=== PATIENT | female | born 1985 | race Caucasian/White ===

== ENCOUNTER 2025-04-07 11:05 | Day surgery (SDC) | payer BC, SELFPAY ==
[2025-04-07] VITALS (19 sets, daily range): BP systolic 117–152; BP diastolic 76–101; PULSE 75–96; RESP 16–20; TEMP 36.4–37.3; O2SAT 92–99; BMI 37.8
[2025-04-07] MEDS: LACTATED RINGERS 1000 ML 1,000 ML 100 ML IV ×2 (11:25→16:33)
[2025-04-07] MEDS: SODIUM CHLORIDE 0.9 % (FLUSH) 10 ML SYRINGE IVF (11:47)
[2025-04-07] MEDS: MIDAZOLAM HCL 1 MG/ML inj IVP (12:50)
--- NOTE | 2025-04-07 13:02 | W.PM.NB ---
Nerve Block Nerve Block Time Seen by Provider: 12:55 Date Seen: 04/07/25 Type of block requested by surgeon for post-operative analgesia: popliteal Side: right Time out performed: Yes Verification of patient name: Yes Verification of date of : Yes Site marking: site marked Name of person performing procedure: Maicol Continuous monitoring Was continuous monitoring of O2 sat, B/P, computer help desk representative, recorded every 15 minutes?: Yes Procedure Checklist: sterile prep, needles and gloves Ultrasound guided. Images saved: Yes Medications given in 5ml increments after negative aspiration: Marcaine %: 0.5 mL: 10 Needle gauge: 22 and Exparel mL: 10 Patient tolerated procedure well: Yes Additional comments: Needle noted adjacent to nerve Block Charges Block Charge (with Pro Fee): Sciatic Nerve Use of Ultrasound Machine for Block: Yes- US Guidance/pain block
--- NOTE | 2025-04-07 13:08 | SUR.PREOP ---
TIME?OUT:?1250 PT/fernando azul RN/jorge corey MDA?VERIFICATION?OF?SURGICAL?SITE,?PROCEDURE,?AND?CONSENT OBTAINED?PRIOR?TO?INVASIVE?PROCEDURE.
--- NOTE | 2025-04-07 13:48 | P.ANES_ITS ---
Anesthesia Charges Start Date/Time Anesthesia Start Date: 04/07/25 Anesthesia Start Time: 13:08 Stop Date/Time Anesthesia Stop Date: 04/07/25 Anesthesia Stop Time: 16:51 Coding CPT Codes CPT Codes: ANESTH LOWER LEG SURGERY - 31493 ([id number]) P3 - PATIENT W/SEVERE SYS DISEASE, QK - THREAD MACHINE OPERATOR 2-4 CNCRNT ANES PROC, QX - SPECIALTY DEVELOPMENT CONSULTANT SVC W/ MD MED DIRECTION
--- NOTE | 2025-04-07 13:48 | W.ANESCHARGE ---
Anesthesia Charges Start Date/Time Anesthesia Start Date: 04/07/25 Anesthesia Start Time: 13:08 Stop Date/Time Anesthesia Stop Date: 04/07/25 Anesthesia Stop Time: 16:51 Coding CPT Codes CPT Codes: ANESTH LOWER LEG SURGERY - 69770 ([id number]) P3 - PATIENT W/SEVERE SYS DISEASE, QK - SHOW JUMPING INSTRUCTOR 2-4 CNCRNT ANES PROC, QX - TRANSFORMER TESTER SVC W/ MD MED DIRECTION
--- NOTE | 2025-04-07 17:15 | P.ANES_ITS ---
Anesthesia Charges Start Date/Time Anesthesia Start Date: 04/07/25 Anesthesia Start Time: 13:08 Stop Date/Time Anesthesia Stop Date: 04/07/25 Anesthesia Stop Time: 16:51 Coding CPT Codes CPT Codes: ANESTH LOWER LEG BONE SURG - 02039 ([id number]) P3 - PATIENT W/SEVERE SYS DISEASE, QK - HARP MAKER 2-4 CNCRNT ANES PROC, QX - TREE TRIMMING LINE TECHNICIAN SVC W/ MD MED DIRECTION
--- NOTE | 2025-04-07 17:15 | W.ANESCHARGE ---
Anesthesia Charges Start Date/Time Anesthesia Start Date: 04/07/25 Anesthesia Start Time: 13:08 Stop Date/Time Anesthesia Stop Date: 04/07/25 Anesthesia Stop Time: 16:51 Coding CPT Codes CPT Codes: ANESTH LOWER LEG BONE SURG - 28499 ([id number]) P3 - PATIENT W/SEVERE SYS DISEASE, QK - ACTION INSTALLER 2-4 CNCRNT ANES PROC, QX - DRUG SAFETY SCIENTIST SVC W/ MD MED DIRECTION
--- NOTE | 2025-04-07 17:27 | W.PODPROC_ITS ---
Date of Procedure: 04/07/25 Surgeon: Urbano Main DPM Pre-op Diagnosis: 1. Hammertoe deformity 2nd digit right 2. Hammertoe deformity 3rd digit right 3. Hammertoe deformity 4th digit right 4. Hammertoe deformity 5th digit right 5. Gastroc equinus right 6. 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 Metatarsalgia right Post-op Diagnosis: 1. Hammertoe deformity 2nd digit right 2. Hammertoe deformity 3rd digit right 3. Hammertoe deformity 4th digit right 4. Hammertoe deformity 5th digit right 5. Gastroc equinus right 6. 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 Metatarsalgia right Type of Procedure: 1. Hammertoe correction 2nd digit right 2. Hammertoe correction 3rd digit right 3. Hammertoe correction 4th digit right 4. Hammertoe correction 5th digit right 5. Gastroc lengthening right 6. Excision of neuroma right foot Indications: Patient has had ongoing pain due to right foot. MRI confirmed neuroma 2nd intermetatarsal space. She has significant fat pad displacement and increased pain. She has elected to proceed with surgical correction. I reviewed the procedure, recovery, expectations and potential complications. These include but are not limited to: Poor wound healing, infection, under correction, over correction, nerve injury, hardware failure, potentially future surgery, deep venous thrombosis, pulmonary embolism, complex regional pain syndrome, possible . He understands risks written consent was obtained. Site marked. Procedure Description: Patient brought the operating room placed supine position on operating table that time she was placed under general anesthesia. She received a preoperative popliteal block by Anesthesia. She was then prepped and draped in sterile fashion. Standard time-out protocol followed. The right limb was exsanguinated and the thigh tourniquet inflated to 300 mm Hg. The right limb was externally rotated and frog legged. A 4 cm incision was made over the medial distal aspect of the gastroc muscle. The incision was carried down through skin subcutaneous tissues. Paratenon was identified and incised. The gastroc muscle and aponeurosis was identified. This was from the deeper soleal fibers. The aponeurosis was isolated with a nasal speculum for protecting neurovascular structures superficial and the soleal fibers deep. The aponeurosis was then transected from medial to lateral in its entirety. Excellent lengthening was obtained with the foot now having 10? dorsiflexion with the knee straight. Wound was thoroughly irrigated normal sterile saline. Paratenon was repaired with 4-0 Vicryl. Subcutaneous tissues reapproximated 4-0 Vicryl and skin closed with 4-0 Prolene. Linear incision was made over the 2nd intermetatarsal space. The incision was carried down through skin subcutaneous tissues. The deep transverse metatarsal ligament was released. The plantar common digital nerve was identified and was extremely thickened along its course. Was carefully dissected free distally and transected. It was then dissected proximal until it disappeared into the intrinsic muscles of the foot where it was transected. Nerve was sent to pathology. Through the same incision the extensor digitorum brevis and longus tendon to the 2nd toe and to the 3rd toe were all transected. Separate 1 cm stab incision was made between the 4th and 5th extensor tendons proximal to the metatarsophalangeal joint. The extensor digitorum brevis and longus tendons to the 4th and 5th toes were then transected. Linear incision was made over the 2nd digit PIPJ. The incision carried down through skin and subcutaneous tissues. Transverse incision was made through the extensor tendon and joint capsule. The medial and lateral collateral ligaments were released. Sagittal saw was then used to resect the head of the proximal phalanx and the base of the middle phalanx. The long flexor tendon was identified between the 2 heads of the brevis tendon. The tendon was transected distally and then a whipstitch was applied with 2 0 FiberWire. Guide pin was placed in the base of the proximal phalanx from dorsal plantar. A 3 mm drill hole made. Long flexor tendon was passed from plantar to dorsal through the drill hole. Tension was fine tuned and a 3.0 mm bio tenodesis screw inserted. Wound was irrigated normal sterile saline. 0.045 smooth K-wire was introduced into the base of the middle phalanx and driven out the tip of the toe. Fusion site was then held in the and a appropriate alignment and the K-wire driven back retrogradely into the proximal phalanx. C-arm confirmed excellent position. K- wire was bent cut and capped with a Jergens ball. The extensor tendon was then repaired at the PIPJ with 4-0 Vicryl. Subcutaneous tissues reapproximated 4-0 Monocryl and skin closed with 4-0 Prolene. Linear incision was made over the 3rd digit PIPJ. The incision carried down through skin and subcutaneous tissues. Transverse incision was made through the extensor tendon and joint capsule. The medial and lateral collateral ligaments were released. Sagittal saw was then used to resect the head of the proximal phalanx and the base of the middle phalanx. The long flexor tendon was identified between the 2 heads of the brevis tendon. The tendon was transected distally and then a whipstitch was applied with 2 0 FiberWire. Guide pin was placed in the base of the proximal phalanx from dorsal plantar. A 3 mm drill hole made. Long flexor tendon was passed from plantar to dorsal through the drill hole. Tension was fine tuned and a 3.0 mm bio tenodesis screw inserted. Wound was irrigated normal sterile saline. 0.045 smooth K-wire was introduced into the base of the middle phalanx and driven out the tip of the toe. Fusion site was then held in the and a appropriate alignment and the K-wire driven back retrogradely into the proximal phalanx. C-arm confirmed excellent position. K- wire was bent cut and capped with a Jergens ball. The extensor tendon was then repaired at the PIPJ with 4-0 Vicryl. Subcutaneous tissues reapproximated 4-0 Monocryl and skin closed with 4-0 Prolene. Linear incision was made over the 4th digit PIPJ. The incision carried down through skin and subcutaneous tissues. Transverse incision was made through the extensor tendon and joint capsule. The medial and lateral collateral ligaments were released. Sagittal saw was then used to resect the head of the proximal phalanx and base of the middle phalanx. 0.045 smooth K-wire was introduced into the base of the middle phalanx and driven out the tip of the toe. K-wire driven back retrogradely into the proximal phalanx. C-arm confirmed excellent position. K-wire was bent cut and capped with a Jergens ball. Wound irrigated normal sterile saline. The extensor tendon was then repaired at the PIPJ with 4-0 Vicryl. Subcutaneous tissues reapproximated 4-0 Monocryl and skin closed with 4-0 Prolene. Linear incision was made over the 5th digit PIPJ. The incision carried down through skin and subcutaneous tissues. Transverse incision was made through the extensor tendon and joint capsule. The medial and lateral collateral ligaments were released. Sagittal saw was then used to resect the head of the proximal phalanx. Wound was irrigated normal sterile saline. 0.045 smooth K-wire was introduced into the base of the middle phalanx and driven out the tip of the toe. Fusion site was then held in the and a appropriate alignment and the K- wire driven back retrogradely into the proximal phalanx. C-arm confirmed excellent position. K-wire was bent cut and capped with a Jergens ball. The extensor tendon was then repaired at the PIPJ with 4-0 Vicryl. Subcutaneous tissues reapproximated 4-0 Monocryl and skin closed with 4-0 Prolene. Tourniquet was released prior to wound closure no active bleeding noted. Was then reinflated after being down for 30 minutes. See nursing notes for times. Sterile dressing was applied. She was placed and well-padded below the knee plaster splint. He was transferred from OR to PACU vital signs stable vascular status intact to the right lower extremity. She will be discharged per same-day surgery protocol. She is given oxycodone for pain. She is given both written and verbal postop instructions. She is nonweightbearing. She has walker and the walker. Follow-up in 2-3 days. Anesthesia: GETA and regional Hemostasis: thigh Estimated blood loss (mL): 20 Provider Operated C-arm: C-arm fluoroscopy operated by Urbano Main DPM, for right foot hammertoe repair. Thirteen C-arm spot images were obtained. Fluoroscopy time was 00.00.09. Implants: 0.045 smooth K-wires x4, 3.0 mm bio tenodesis screws x2 Specimens: specimen obtained, sent to pathology (Second intermetatarsal space nerve sent in formalin) Disposition: PACU
[2025-04-07] MEDS: OxyCODONE/APAP 5-325 TABLET PO (18:09)
== END 2025-04-07 20:10 | disposition home or self-care (01) ==
LOC: OR 12:36 → MEDSURG 20:25 → OR 20:25
PROVIDERS: PCP Student in an Organized Health Care Education/Training Program; Visit Provider Podiatrist
PROC: (CPT 27650; principal; 2025-04-07 12:30)
PROC: (CPT 28285; 2025-04-07 12:30)
DX: M20.41 Other hammer toe(s) (acquired), right foot (principal); G57.61 Lesion of plantar nerve, right lower limb; M62.461 Contracture of muscle, right lower leg; M62.462 Contracture of muscle, left lower leg
CPT/HCPCS: 28285 ×4; 28080; 27687; 01474; 01480; 64445; 73620; 76000; 76942; A9270; C1713; J0330; J0665; J0666; J0690; J1100; J1171; J1200; J2250; J2405; J2704; J2710; J3010; J3490; J7120